=== PATIENT | male | born 1950 | race Caucasian/White ===

== ENCOUNTER → 2018-02-05 02:49 | Outpatient (CLI) | payer MEDICARE, BC, SELFPAY ==
[2018-02-05 09:57] LABS: CREATININE 1.29 mg/dL (0.70-1.30); Cholesterol 165 mg/dL (50-200); Estimated GFR 55.39 (mL/min/1.73m2); HDL Cholesterol 49 mg/dL (40-60); LDL CHOLESTEROL 102 mg/dL (<100); Potassium 4.1 mmol/L (3.5-5.1); Triglyceride 97 mg/dL (30-150)
== END ==
PROVIDERS: PCP Family Medicine; Visit Provider Family Medicine
DX: I10 Essential (primary) hypertension (principal); E78.5 Hyperlipidemia, unspecified
CPT/HCPCS: 36415; 80061; 83721; 82565; 84132

== ENCOUNTER 2019-02-09 10:20 | Outpatient (CLI) | payer MEDICARE, BC, SELFPAY ==
[2019-02-09 13:27] LABS: CREATININE 1.13 mg/dL (0.70-1.30); Calculated LDL 119 mg/dL; Cholesterol 195 mg/dL (50-200); HDL Cholesterol 51 mg/dL (40-60); Potassium 4.2 mmol/L (3.5-5.1); Triglyceride 126 mg/dL (30-150); Vitamin B12 673 pg/mL (193-986)
[2019-02-10 09:58] LABS: PSA, Screening 0.7 ng/ml (0-4.5)
== END 2019-02-09 10:40 ==
PROVIDERS: PCP Family Medicine; Visit Provider Family Medicine
DX: I10 Essential (primary) hypertension (principal); E78.5 Hyperlipidemia, unspecified; R20.0 Anesthesia of skin; R20.2 Paresthesia of skin; Z12.5 Encounter for screening for malignant neoplasm of prostate
CPT/HCPCS: 36415; 80061; 83721; 84153; 82565; 82607; 84132

== ENCOUNTER 2019-02-12 09:42 | Outpatient (REF) | payer MEDICARE, BC, SELFPAY ==
--- NOTE | 2019-02-11 09:00 | SKI_PTH ---
PATIENT: Cole Tanner LOC: [facility] U#:[id number] AGE/SX: 68/M ROOM: RE02/12/[address]: Reji Seo MD : 1950 BED: DIS: 02/12/2019 SPEC #: [id number] RECD: 02/12/19 12:57 STATUS: CORBY REQ #: [id number] [place]: 02/11/19 09:[address]: Reji Seo DEPT: Surgical Specimen RECD BY: Cyndi Isaac Tissues: 1 - SKIN BIOPSY(SHAVE/PUNCH) Procedures: SKIN LEVEL 4 Comments: [id number]
== END 2019-02-12 10:02 ==
LOC: LBN 09:42
PROVIDERS: PCP Family Medicine; Visit Provider Family Medicine
DX: C44.619 Basal cell carcinoma of skin of left upper limb, including shoulder (principal)
CPT/HCPCS: 88305

== ENCOUNTER 2019-04-20 17:21 | Outpatient (REF) | payer MEDICARE, BC, SELFPAY ==
--- NOTE | 2019-04-20 15:25 | SKI_PTH ---
PATIENT: Cole Tanner LOC: [facility] U#:[id number] AGE/SX: 68/M ROOM: RE04/20/[address]: Reji Seo MD : 1950 BED: DIS: 04/20/2019 SPEC #: [id number] RECD: 04/20/19 18:08 STATUS: CORBY REQ #: [id number] [place]: 04/20/19 15:[address]: Reji Seo DEPT: Surgical Specimen RECD BY: Cyndi Isaac Tissues: 1 - SKIN BIOPSY(SHAVE/PUNCH) Procedures: SKIN LEVEL 4 Comments: [id number]
== END 2019-04-20 17:41 ==
LOC: LBN 17:21
PROVIDERS: PCP Family Medicine; Visit Provider Family Medicine
DX: C44.519 Basal cell carcinoma of skin of other part of trunk (principal)
CPT/HCPCS: 88305

== ENCOUNTER → 2019-05-07 10:50 | Outpatient (BNVA) | payer MEDICARE, BC, SELFPAY | PROVIDERS: PCP Family Medicine; Referring Provider Family Medicine; Visit Provider Surgery | DX: C44.519 Basal cell carcinoma of skin of other part of trunk (principal) | CPT/HCPCS: 99212; 99213 ==

== ENCOUNTER → 2019-05-11 13:24 | Outpatient (BNVA) | payer MEDICARE, BC, SELFPAY | PROVIDERS: PCP Family Medicine; Referring Provider Family Medicine; Visit Provider Physical Therapy Assistant | DX: L90.5 Scar conditions and fibrosis of skin (principal); R23.8 Other skin changes; Z85.828 Personal history of other malignant neoplasm of skin | CPT/HCPCS: 11401; 99213 ==

== ENCOUNTER 2019-05-11 17:49 | Outpatient (REF) | payer MEDICARE, BC, SELFPAY ==
--- NOTE | 2019-05-11 13:30 | SKI_PTH ---
PATIENT: Cole Tanner LOC: [facility] U#:[id number] AGE/SX: 68/M ROOM: RE05/11/[address]: ZANA Mchugh : 1950 BED: DIS: 05/11/2019 SPEC #: [id number] RECD: 05/11/19 17:53 STATUS: CORBY REQ #: [id number] [place]: 05/11/19 13:[address]: Sandi Israel DEPT: Surgical Specimen RECD BY: Cyndi Isaac ENTERED: 05/11/19 17:54 SP TYPE: JACKIE GAUTHIER DR: Reji Seo MD Tissues: 1 - SKIN BIOPSY(SHAVE/PUNCH) 2 - SKIN BIOPSY(SHAVE/PUNCH) Procedures: SKIN LEVEL 4 Comments: [id number]
== END 2019-05-11 18:09 ==
LOC: LBN 17:49
PROVIDERS: PCP Family Medicine; Visit Provider Physical Therapy Assistant
DX: L90.5 Scar conditions and fibrosis of skin (principal); R23.8 Other skin changes; Z85.828 Personal history of other malignant neoplasm of skin
CPT/HCPCS: 88305

== ENCOUNTER → 2019-05-19 09:10 | Outpatient (BNVA) | payer MEDICARE, BC, SELFPAY | PROVIDERS: PCP Family Medicine; Referring Provider Family Medicine; Visit Provider Surgery | DX: Z48.817 Encounter for surgical aftercare following surgery on the skin and subcutaneous tissue (principal); L72.3 Sebaceous cyst; I10 Essential (primary) hypertension ==

== ENCOUNTER → 2019-05-31 09:25 | Outpatient (BNVA) | payer MEDICARE, BC, SELFPAY | PROVIDERS: PCP Family Medicine; Referring Provider Family Medicine; Visit Provider Student in an Organized Health Care Education/Training Program | DX: M65.4 Radial styloid tenosynovitis [de Quervain] (principal); M65.341 Trigger finger, right ring finger; I10 Essential (primary) hypertension | CPT/HCPCS: 99203; 99214 ==

== ENCOUNTER 2019-08-03 06:06 | Day surgery (SDC) | payer MEDICARE, BC, SELFPAY ==
--- NOTE | 2019-08-02 18:48 | W.PREOPHP ---
Assessment and Plan Assessment and plan (1) De Quervain's tenosynovitis, right: Status: Acute (2) Trigger finger, right ring finger: Status: Acute Assessment and plan: Plan: Educated patient on surgery covering surgical technique, recovery process, benefits and risks including but not limited to risk of infection, blood clot, damage to soft tissue/blood vessels/nerves in detail. After discussion patient gives verbal understanding of risks and elects to proceed with scheduling surgery. Patient had opportunity to have questions answered to their satisfaction. They will contact office if issues arise. Patient will continue to be scheduled for right de Quervain's as well as right ring trigger finger release with Dr. Billings. History of Present Illness Narrative: Mr. Tanner is a 68-year-old male who is been seen in orthopedic clinic regarding right thumb and wrist discomfort. Patient has been having ongoing symptoms since summer 2018. Notices his thumb and wrist discomfort most significantly with golfing as well as with repetitive motions. Additionally patient has been experiencing triggering of his right ring finger. Patient was seen orthopedic clinic on 05/31/2019 at which time he was diagnosed with de Quervain's tenosynovitis of the right wrist as well as trigger finger of his right ring finger. Due to patient's continued symptoms he was offered surgical intervention and elected to proceed. Review of Systems Cardiovascular Cardiovascular: Denies chest pain and Denies dyspnea Respiratory Respiratory: Denies dyspnea [facility] Medical History Carpal tunnel syndrome HTN (hypertension) Hyperlipidemia Sebaceous cyst (Acute) Skin cancer, basal cell Surgical History (Updated 08/03/19 @ 06:57 by Dinorah Lin RN) Colonoscopy - IV Sedation (05/06/16) 2006 Excision, Lesion skin lesion of right upper chest Hx of eye surgery (Acute) bilateral surgery for glaucoma Trigger Finger release (~03/1999) Social History (Updated 02/11/19 @ 12:53 by Alli Dumont) Smoking/Tobacco Use Status: Never Alcohol Intake: current Alcohol Intake frequency: a few times a week Alcohol type: wine Drug use: Never Substance use type: does not use Caregiver/Support person: No Household members: spouse Communication Needs: None Pets and animals: No Sexually active: Yes Do you think of yourself as: straight/heterosexual Current gender identity: male What is your relationship status?: How often do you talk on the phone with friends or family?: three or more times per week How often do you get together with friends or relatives?: three or more times per week How often do you attend episcopalian or nondenominational services?: 1-3 times per year Do you belong to any clubs or organized social groups?: yes Panel score (0-1 are the most socially isolated patients): 3 What type of physical activity do you participate in: walking and other Details: golf Duration: 45-60 minutes/day Frequency: 3-4 times per week Sharon/Restorationism: Scientologist Special sharon needs: No Seatbelt use: always Drive intox or ride w/intox recycle driver: No Do you feel safe at home: Yes Do you feel safe in your relationship?: Yes Meds Home Medications and Allergies Home Medications Medication Instructions Recorded Confirmed Type aspirin [Aspir-81] 81 mg PO DAILY tab-cap 12/14/12 08/03/19 History multivitamin 1 ea PO DAILY tab 12/14/12 08/03/19 History allopurinol 300 mg tablet 300 mg PO DAILY #90 tab-cap 02/09/19 08/03/19 Rx losartan 25 mg tablet 25 mg PO DAILY #90 tab-cap 02/09/19 08/03/19 Rx metoprolol succinate 100 mg 100 mg PO DAILY #90 tab-cap 02/09/19 08/03/19 Rx tablet,extended release 24 hr simvastatin 5 mg tablet 5 mg PO HS #90 tab-cap 02/09/19 08/03/19 Rx Allergies Allergy/AdvReac Type Severity Reaction Status Date / Time lisinopril AdvReac Mild COUGH Unverified 08/03/19 06:20 Exam Const General: cooperative and no acute distress Resp Effort & Inspection: normal respiratory effort and able to speak in complete sentences Auscultation: clear to auscultation bilaterally, no rales, no rhonchi and no wheezes Cardio Heart Sounds: S1 normal, S2 normal and no murmurs
[2019-08-03 06:35] VITALS: BP 148/89; PULSE 69; RESP 16; TEMP 36.3; O2SAT 94
[2019-08-03] MEDS: Lactated Ringers 1,000 ML 80 ML IV (06:51)
--- NOTE | 2019-08-03 07:15 | W.PM.DSUDISC ---
Documented by User: Giselle Khalil 08/03/19 07:19 Discharge Plan Disposition Patient Disposition: HOME Condition: Good Discharge Details Reason For Visit: right ring finger trigger and right De Quervain's Attending Provider: Sixto Billings Primary Care Provider: Reji Seo Home Meds and New Rx's Prescriptions: New hydrocodone-acetaminophen 5-325 mg tablet 1 tab PO Q6H PRN (Reason: severe pain) Qty: 4 RF: 0 acetaminophen 500 mg tablet 500 mg PO Q6H PRN (Reason: pain) Qty: 60 RF: 2 ibuprofen 600 mg tablet 600 mg PO TID PRN (Reason: pain) Qty: 60 RF: 0 Continued allopurinol [Zyloprim] 300 mg tablet 300 mg PO DAILY Qty: 90 RF: 4 losartan [Cozaar] 25 mg tablet 25 mg PO DAILY Qty: 90 RF: 4 metoprolol succinate 100 mg tablet extended release 24 hr 100 mg PO DAILY Qty: 90 RF: 3 simvastatin 5 mg tablet 5 mg PO HS Qty: 90 RF: 4 multivitamin 1 EACH tablet 1 ea PO DAILY RF: 0 aspirin [Aspir-81] 81 MG tablet,delayed release (DR/EC) 81 mg PO DAILY RF: 0 Discharge Instructions Additional Instructions: Discharge Instructions Activity: You should keep the hand elevated as much as possible for the first few days. You may use the other fingers as tolerated but avoid trying to do too much too soon. You may perform light activities with the dressing in place. Dressing/Cast: Your soft dressing splint should stay in place at all times. Do NOT get it wet. You may loosen the CORBIN wrap if you feel it is too tight and then rewrap more loosely. If it becomes soiled, you may change after 3 days and keep the wounds covered with light gauze or a bandaid. Medications: - You should take Tylenol and Ibuprofen for baseline pain control. - You have Hydrocodone for breakthrough pain. - You may apply ice over the thumb. Follow-up: 7 days Activity:: Elevate Remove Dressings/Wound Care:: Do Not Remove Shower/Bathe:: Cover Diet:: As Tolerated Discharge Orders Discharge Orders: Discharge Order (Routine); Ordered 08/03/19 Ordered By: Giselle Khalil DS: Diagnosis Discharge Diagnosis (1) De Quervain's tenosynovitis, right: Status: Acute (2) Trigger finger, right ring finger: Status: Acute Documented by User: Sixto Billings MD 08/03/19 08:10 Discharge Plan Disposition Patient Disposition: HOME Condition: Good Discharge Details Reason For Visit: right ring finger trigger and right De Quervain's Attending Provider: Sixto Billings Primary Care Provider: Reji Seo Home Meds and New Rx's Prescriptions: New hydrocodone-acetaminophen 5-325 mg tablet 1 tab PO Q6H PRN (Reason: severe pain) Qty: 4 RF: 0 acetaminophen 500 mg tablet 500 mg PO Q6H PRN (Reason: pain) Qty: 60 RF: 2 ibuprofen 600 mg tablet 600 mg PO TID PRN (Reason: pain) Qty: 60 RF: 0 Continued allopurinol [Zyloprim] 300 mg tablet 300 mg PO DAILY Qty: 90 RF: 4 losartan [Cozaar] 25 mg tablet 25 mg PO DAILY Qty: 90 RF: 4 metoprolol succinate 100 mg tablet extended release 24 hr 100 mg PO DAILY Qty: 90 RF: 3 simvastatin 5 mg tablet 5 mg PO HS Qty: 90 RF: 4 multivitamin 1 EACH tablet 1 ea PO DAILY RF: 0 aspirin [Aspir-81] 81 MG tablet,delayed release (DR/EC) 81 mg PO DAILY RF: 0 Discharge Instructions Additional Instructions: Discharge Instructions Activity: You should keep the hand elevated as much as possible for the first few days. You may use the other fingers as tolerated but avoid trying to do too much too soon. You may perform light activities with the dressing in place. Dressing/Cast: Your soft dressing splint should stay in place at all times. Do NOT get it wet. You may loosen the CORBIN wrap if you feel it is too tight and then rewrap more loosely. If it becomes soiled, you may change after 3 days and keep the wounds covered with light gauze or a bandaid. Medications: - You should take Tylenol and Ibuprofen for baseline pain control. - You have Hydrocodone for breakthrough pain. - You may apply ice over the thumb. Follow-up: 7 days Activity:: Elevate Remove Dressings/Wound Care:: Do Not Remove Shower/Bathe:: Cover Diet:: As Tolerated Discharge Orders Discharge Orders: Discharge Order (Routine); Ordered 08/03/19 Ordered By: Giselle Khalil
[2019-08-03] MEDS: Sodium Bicarbonate 50 MEQ/50 ML VIAL (07:36)
[2019-08-03 08:45] VITALS: BP 133/78; PULSE 61; RESP 16; TEMP 36.2; O2SAT 94
--- NOTE | 2019-08-03 09:56 | W.PM.OP ---
Date of service: 08/03/19 Time of Service: 08:34 Operative Note Operative Note DATE OF PROCEDURE: 08/03/19 PRE-OP DIAGNOSIS: Right Dequervain's Tenosynovitis and Right Ring Finger Trigger Finger POST-OP DIAGNOSIS: same PROCEDURE: Right First Extensor Compartment Release and Right Ring Finger Trigger Release SURGEON: Sixto Billings ANESTHESIA: MAC ESTIMATED BLOOD LOSS: 5 PATHOLOGY: none sent TOURNIQUET TIME: 0 COMPLICATIONS: None Patient was transported to: same day Patient's condition: stable Indications: Cole is a 68 year old male who has had symptoms of Dequervain's tenosynovitis. He also had a persistent right ring finger trigger finger. Nonoperative treatment options had been trialed. Given their failure, I offered operative intervention. I reviewed the technical details of a first extensor compartment release. I reviewed the risk of the procedure to include bleeding, infection, pain, stiffness, tendon instability, damage to the superficial radial nerve, and complete release. Despite these risks, the patient elected to proceed. Findings: There was a tightened A1 nayeli of the ring finger which was released. The tendons were withdrawn and insecpted and finger motion was tested. There was a tightened first extensor compartment with notable fluid and a small cyst at the edge of the compartment. Procedure Description: Cole was greeted in the preoperative holding area. Name and surgical site were confirmed. The history and physical was completed. The consent was reviewed the patient and signed. Cole was taken back to the operating room. The patient was placed and monitored anesthesia care. The right was then prepped with ChloraPrep and draped in a standard fashion after a nonsterile tourniquet was placed high up onto the arm. Prophylactic antibiotics in the form of cefazolin were administered. A timeout was performed for safe surgery. The surgical sites were drawn on the skin. The planned surgical field was anesthetized with 1% Lidocaine with epinephrine buffered 9:1 with sodium bicarbonate. Starting with the ring finger trigger finger, a 1 cm incision was made longitudinally overlying the A1 nayeli. This was incised sharply the skin. Patient had good anesthetic. Deep tissue was dissected bluntly and retracted away to expose the A1 nayeli. With A1 nayeli identified the proximal edge was incised with a pair of tenotomy scissors. This was released through its entirety with 2 flaps of the A1 nayeli freely . There was some synovitis seen around the tendons which was excised sharply. The tendons were withdrawn from the hand without difficulty and inspected. There was no tearing. Cole was unable to move his finger without clicking, triggering, or locking. The wound was irrigated. The skin was closed with a 4-0 nylon. We then turned our attention to the de Quervain's release. A 2 cm incision was made longitudinally over the radial styloid. The skin was incised only. The deep tissue and subcutaneous fat was dissected with a tenotomy scissors trying to protect branches of the superficial radial nerve. Any branches that were identified were retracted out of the way. The first compartment extensor tendons were then identified. The distal aspect of the first compartment was noted and were released. There is immediately a funes of synovial fluid from within the compartment. This release was performed more on the dorsal side to prevent tendon subluxation. The entirety of the first extensor compartment was then released. The slips of the abductor pollicis longus tendon were inspected. They removed to confirm the appropriate motion of the thumb. The extensor pollicis brevis tendon was then identified. No true sub-compartment was identified. There was excessive synovium around the EPB tendon as well as 2 slips of the APL. This was resected sharply. Traction on the tendon was also used to confirm appropriate extension of the thumb confirming the release of the appropriate tendon. Cole was also able to move his thumb to confirm we had appropriately released the tendons. The dorsal radial surface of the radius was once again inspected to make sure there is no other sub-compartments or other restrictions to tendon motion. The wound was then thoroughly irrigated. The deep tissue was closed with a 3-0 Vicryl. The skin was closed with a running subjective 4-0 Monocryl. The hand was dressed with 4 x 4's, Kerlix, and an Marco A wrap. All counts are correct. Patient was transferred back to same day surgery area in stable condition.
== END 2019-08-03 09:02 | disposition home or self-care (01) ==
PROVIDERS: PCP Family Medicine; Visit Provider Student in an Organized Health Care Education/Training Program
PROC: (CPT 25000; principal; 2019-08-03 07:30)
PROC: (CPT 26055; 2019-08-03 07:30)
DX: M65.4 Radial styloid tenosynovitis [de Quervain] (principal); M65.341 Trigger finger, right ring finger; I10 Essential (primary) hypertension
CPT/HCPCS: 25000; 26055; NC; J0690; J1885; J2001; J2704

== ENCOUNTER → 2019-08-12 07:57 | Outpatient (BNVA) | payer MEDICARE, BC, SELFPAY | PROVIDERS: PCP Family Medicine; Referring Provider Family Medicine; Visit Provider Student in an Organized Health Care Education/Training Program | DX: Z47.89 Encounter for other orthopedic aftercare (principal); M65.4 Radial styloid tenosynovitis [de Quervain]; M65.341 Trigger finger, right ring finger ==

== ENCOUNTER 2020-03-14 01:47 | Outpatient (CLI) | payer MEDICARE, BC, SELFPAY ==
[2020-03-14 09:20] LABS: CREATININE 1.32 mg/dL (0.70-1.30); Calculated LDL 93 mg/dL (<100); Cholesterol 170 mg/dL (<200); Estimated GFR 53.62 (mL/min/1.73m2); HDL Cholesterol 58 mg/dL (40-60); Potassium 4.3 mmol/L (3.5-5.1); Triglyceride 98 mg/dL (<150)
== END 2020-03-14 02:07 ==
PROVIDERS: PCP Family Medicine; Visit Provider Family Medicine
DX: I10 Essential (primary) hypertension (principal); E78.5 Hyperlipidemia, unspecified
CPT/HCPCS: 36415; 80061; 82565; 84132

== ENCOUNTER 2020-04-12 09:57 | Outpatient (REF) | payer MEDICARE, BC, SELFPAY ==
--- NOTE | 2020-04-12 08:45 | SKI_PTH ---
PATIENT: Cole Tanner LOC: [facility] U#:[id number] AGE/SX: 69/M ROOM: RE04/12/[address]: Reji Seo MD : 1950 BED: DIS: 04/12/2020 SPEC #: [id number] RECD: 04/12/20 12:50 STATUS: CORBY REQ #: [id number] [place]: 04/12/20 08:[address]: Reji Seo DEPT: Surgical Specimen RECD BY: Cyndi Isaac Tissues: 1 - SKIN BIOPSY(SHAVE/PUNCH) Procedures: SKIN LEVEL 4 Comments: [id number]
== END 2020-04-12 10:17 ==
LOC: LBN 09:57
PROVIDERS: PCP Family Medicine; Visit Provider Family Medicine
DX: L28.1 Prurigo nodularis (principal)
CPT/HCPCS: 88305

== ENCOUNTER 2020-05-10 00:21 | Outpatient (CLI) | payer MEDICARE, BC, SELFPAY ==
[2020-05-12 18:47] LABS: Patient Race White; SARS-CoV-2 RNA Undetected (Undetected); SARS-CoV-2 Specimen Source Nasal
== END 2020-05-10 00:41 ==
PROVIDERS: PCP Family Medicine; Visit Provider Family Medicine
DX: Z11.59 Encounter for screening for other viral diseases (principal); Z20.828 Contact with and (suspected) exposure to other viral communicable diseases
CPT/HCPCS: U0003

== ENCOUNTER 2021-04-27 12:06 | Outpatient (CLI) | payer MEDICARE, BC, SELFPAY ==
[2021-04-27 16:42] LABS: CREATININE 1.1 mg/dL (0.70-1.30); Potassium 4.2 mmol/L (3.5-5.1); Uric Acid 4.3 mg/dL (3.5-7.2)
== END 2021-04-27 12:07 | disposition home or self-care (01) ==
PROVIDERS: PCP Family Medicine; Visit Provider Family Medicine
DX: I10 Essential (primary) hypertension (principal); M10.9 Gout, unspecified
CPT/HCPCS: 36415; 82565; 84132; 84550

== ENCOUNTER 2022-07-04 04:14 | Outpatient (CLI) | payer MEDICARE, BC, SELFPAY ==
[2022-07-04 13:53] LABS: Anion Gap 8.8 mmol/L (3-11); BUN 17 mg/dL (7-18); CO2 29.2 mmol/L (21.0-32.0); CREATININE 1.4 mg/dL (0.70-1.30); Calcium 9.1 mg/dL (8.5-10.1); Calculated LDL 88 mg/dL (<100); Chloride 103 mmol/L (98-107); Cholesterol 172 mg/dL (<200); Glucose 93 mg/dL (74-106); HDL Cholesterol 52 mg/dL (40-60); Sodium 141 mmol/L (136-145); Triglyceride 162 mg/dL (<150)
[2022-07-04 14:23] LABS: Uric Acid 4.1 mg/dL (3.5-7.2)
== END 2022-07-04 04:15 | disposition home or self-care (01) ==
PROVIDERS: PCP Family Medicine; Visit Provider Family Medicine
DX: E78.5 Hyperlipidemia, unspecified (principal); E87.1 Hypo-osmolality and hyponatremia; I10 Essential (primary) hypertension; M10.9 Gout, unspecified
CPT/HCPCS: 36415; 80048; 80061; 84550

== ENCOUNTER → 2023-05-27 08:49 | Outpatient (BNVA) | payer MEDICARE, BC, SELFPAY | PROVIDERS: PCP Family Medicine; Referring Provider Family Medicine; Visit Provider Psychiatry & Neurology Neurology | DX: G56.02 Carpal tunnel syndrome, left upper limb (principal); G56.22 Lesion of ulnar nerve, left upper limb; G62.9 Polyneuropathy, unspecified | CPT/HCPCS: 95908; 99204 ==

== ENCOUNTER 2023-06-02 04:56 | Outpatient (CLI) | payer MEDICARE, BC, SELFPAY ==
[2023-06-02 16:31] LABS: Hemoglobin A1C 5.6 % (<5.7)
[2023-06-02 18:04] LABS: TSH (W/Ref FT4) 2.22 uIU/mL (0.36-3.74); Vitamin B12 687 pg/mL (193-986)
[2023-06-04 13:34] LABS: Albumin 61.5 % (55.8-66.1); Albumin g/dL 4.7 g/dL (3.6-5.2); Total Protein 7.7 g/dL (6.3-8.2)
== END 2023-06-02 04:57 | disposition home or self-care (01) ==
LOC: LBO 04:57
PROVIDERS: Psychiatry & Neurology Neurology; PCP Family Medicine; Visit Provider Family Medicine
DX: G62.9 Polyneuropathy, unspecified (principal); R20.0 Anesthesia of skin; R73.9 Hyperglycemia, unspecified
CPT/HCPCS: 36415; 82607; 83036; 84165; 84443

== ENCOUNTER → 2023-06-26 08:22 | Outpatient (BNVA) | payer MEDICARE, BC, SELFPAY | PROVIDERS: PCP Family Medicine; Referring Provider Family Medicine; Visit Provider Student in an Organized Health Care Education/Training Program | DX: G56.02 Carpal tunnel syndrome, left upper limb (principal) | CPT/HCPCS: 99213 ==

== ENCOUNTER 2023-07-02 08:48 | Outpatient (CLI) | payer MEDICARE, BC, SELFPAY ==
[2023-07-02 12:54] LABS: CREATININE 1.3 mg/dL (0.70-1.30); Calculated LDL 93 mg/dL (<100); Cholesterol 171 mg/dL (<200); Estimated GFR 58.01 (mL/min/1.73m2); HDL Cholesterol 59 mg/dL (40-60); Potassium 4.2 mmol/L (3.5-5.1); Triglyceride 99 mg/dL (<150)
[2023-07-02 13:06] LABS: Uric Acid 4.8 mg/dL (3.5-7.2)
== END 2023-07-02 08:49 | disposition home or self-care (01) ==
LOC: LOS 08:48
PROVIDERS: PCP Family Medicine; Referring Provider Family Medicine; Visit Provider Family Medicine
DX: E78.5 Hyperlipidemia, unspecified (principal); M10.9 Gout, unspecified; I10 Essential (primary) hypertension
CPT/HCPCS: 36415; 80061; 82565; 84132; 84550

== ENCOUNTER 2023-07-09 10:16 | Day surgery (SDC) | payer MEDICARE, BC, SELFPAY ==
--- NOTE | 2023-07-09 07:37 | PDOC.DSDIS_ITS ---
Date of service: 07/09/23 Time of Service: 07:37 Discharge Plan Disposition Patient Disposition: Home Condition: Good Discharge Details Reason For Visit: L ECTR Attending Provider: Sixto Billings Primary Care Provider: Reji Seo Home Meds and New Rx's Prescriptions: New hydrocodone-acetaminophen 5-325 mg tablet 1 tab PO Q6H PRN (Reason: pain) Qty: 6 0RF acetaminophen 500 mg tablet 1,000 mg PO TID Qty: 90 0RF ibuprofen 600 mg tablet 600 mg PO TID PRN (Reason: pain) Qty: 90 0RF Continued allopurinol 300 mg tablet 300 mg PO DAILY Qty: 90 4RF Rx Instructions: 1 TAB DAILY losartan 50 mg tablet 50 mg PO DAILY Qty: 90 3RF metoprolol succinate 100 mg tablet extended release 24 hr 100 mg PO DAILY Qty: 90 3RF simvastatin 5 mg tablet 5 mg PO HS Qty: 90 4RF Rx Instructions: 1 TAB HS fexofenadine [Rahel Allergy] 60 mg tablet 60 mg PO DAILY PRN multivitamin 1 EACH tablet 1 ea PO DAILY Discontinued acetaminophen 500 mg tablet 500 mg PO Q6H PRN (Reason: pain) Qty: 60 2RF ibuprofen 600 mg tablet 600 mg PO TID PRN (Reason: pain) Qty: 60 0RF Discharge Instructions Stand Alone Forms: Anesthesia Discharge Inst., Awa Ordoñez Tunnel Release, Michael Maloney ([facility]) Referrals: Sixto Billings MD [ [facility] STAFF PHYSICIAN] - 07/17/23 8:00 am Activity:: Activity as Tolerated Remove Dressings/Wound Care:: 48 hours Shower/Bathe:: 48 hours Diet:: As Tolerated Discharge Orders Discharge Orders: Discharge Order (Routine); Ordered 07/09/23 Ordered By: Danny Eaton DS: Diagnosis Discharge Diagnosis (1) Carpal tunnel syndrome on left: Status: Acute
[2023-07-09 10:37] VITALS: BP 143/82; PULSE 52; RESP 16; TEMP 35.8; O2SAT 97
[2023-07-09] MEDS: Lactated Ringers 1,000 ML 80 ML IV (11:14)
--- NOTE | 2023-07-09 11:46 | W.ANESPRE ---
General Info Date of Service Date Performed: 07/09/23 Height: 5 ft 11 in Weight: 103.9 kg Body Mass Index (BMI): 31.9 Surgical Procedure: Operation Date: 07/09/23 12:55 Proposed Procedure Side Surgeon p Wrist ECTR Left Sixto Billings MD Meds Allergies and Home Medications Allergies Allergy/AdvReac Type Severity Reaction Status Date / Time lisinopril AdvReac Mild COUGH Verified 07/09/23 10:47 Home Medication Medication Instructions Recorded multivitamin 1 ea PO DAILY 12/14/12 fexofenadine 60 mg tablet (Rahel 60 mg PO DAILY PRN 03/10/20 Allergy) allopurinol 300 mg tablet 300 mg PO DAILY #90 tab-caps 07/02/23 losartan 50 mg tablet 50 mg PO DAILY #90 tabs 07/02/23 metoprolol succinate 100 mg 100 mg PO DAILY #90 tab-caps 07/02/23 tablet,extended release 24 hr simvastatin 5 mg tablet 5 mg PO HS #90 tab-caps 07/02/23 acetaminophen 500 mg tablet 1,000 mg (2 x 500 mg) PO TID #90 07/09/23 tabs hydrocodone 5 mg-acetaminophen 325 1 tab PO Q6H PRN pain #6 tabs 07/09/23 mg tablet ibuprofen 600 mg tablet 600 mg PO TID PRN pain #90 tabs 07/09/23 Current Visit Medications: Current Medications Generic Name Dose Route Start Last Admin Trade Name Freq PRN Reason Stop Dose Admin Acetaminophen 650 mg 07/09/23 07:36 Acetaminophen 325 Mg Tab PO 08/08/23 07:35 Q4H PRN PRN Hydrocodone Bitart/Acetaminophen 0 tab 07/09/23 07:36 Hydrocodone 5/Acetaminophen 325 Tab PO 08/08/23 07:35 Q3H PRN PRN Pain Ringer's Solution 1,000 mls @ 80 mls/hr 07/09/23 06:00 07/09/23 11:14 IV 08/07/23 23:59 80 mls/hr INFUSION [place]ON Administration Cefazolin Sodium/Dextrose 2 gm in 50 mls @ 100 mls/hr 07/09/23 06:00 Ancef Duplex IVPB 08/08/23 05:59 PREOP [place] IV Miscellaneous Supplies 1 each 07/09/23 06:00 Iv Access IV 08/07/23 23:59 DIRECTED [place] Sodium Chloride 0 ml 07/09/23 06:00 Normal Saline Flush 10 Ml Syr IV 08/07/23 23:59 PRN PRN Sodium Chloride 0 ml 07/09/23 06:00 Normal Saline 10 Ml Vial IJ 08/07/23 23:59 DIRECTED PRN Sterile Water 0 ml 07/09/23 06:00 Water,Injection,Sterile 10 Ml Vial IJ 08/07/23 23:59 DIRECTED PRN PFSH Active Problems Active Problems: Problem Status Onset Code Ulnar neuropathy at elbow of left upper extremity G56.22 Peripheral neuropathy G62.9 Carpal tunnel syndrome on left G56.02 Dysphagia R13.10 Dysplastic skin lesion L98.8 Atypical pneumonia J18.9 Status post trigger finger release Z98.890 Kidney stone 03/31/12 N20.0 Hypertension I10 Hyperlipidemia 12/22/12 E78.5 History of methicillin resistant Staphylococcus aureus infection 05/12/14 Z86.14 Gout 12/22/12 M10.9 Fracture of tibia S82.209A Anterior subluxation or dislocation of shoulder Carpal tunnel syndrome 12/22/12 G56.00 Basal cell carcinoma of chest wall 02/21/16 C44.519 Actinic keratosis of scalp 01/10/15 L57.0 Skin lesion L98.9 BCC (basal cell carcinoma of skin) C44.91 Trigger finger, right ring finger M65.341 De Quervain's tenosynovitis, right M65.4 Visit for suture removal Z48.02 Sebaceous cyst L72.3 Medical History Medical History HTN (hypertension) Hyperlipidemia Skin cancer, basal cell Carpal tunnel syndrome Surgical History Surgical History Hx of eye surgery bilateral surgery for glaucoma Trigger Finger release (~03/1999) Excision, Lesion skin lesion of right upper chest Colonoscopy - IV Sedation (05/06/16) 2005 Tobacco Smoking/Tobacco Use Status: Never Passive smoking exposure: No Second hand exposure: No Alcohol Alcohol Intake: current Alcohol intake frequency: a few times a week Alcohol type: wine and hard liquor Substance Use Substance use: Never Substance use type: does not use Vital Signs and Lab Results Vital Signs Most Recent Vital Signs in EMR: Most Recent Vital Signs Temp Pulse Resp BP Pulse Ox 35.8 C L 52 L 16 143/82 H 97 07/09/23 10:37 07/09/23 10:37 07/09/23 10:37 07/09/23 10:37 07/09/23 10:37 Lab Results Blood Type / Crossmatch: No Data to Display Complete Blood Count: No Data to Display Complete Metabolic Panel: Potassium 4.2 mmol/L (3.5-5.1) 07/02/23 09:25 Creatinine 1.3 mg/dL (0.70-1.30) 07/02/23 09:25 Est GFR (CKD-EPI 2020) 58.01 (mL/min/1.73m2) 07/02/23 09:25 Liver Function Panel: No Data to Display Coagulation Panel: No Data to Display Cardiac Panel: No Data to Display Arterial Blood Gas: No Data to Display Venous Blood Gas: No Data to Display Pancreas Panel: No Data to Display Thyroid Panel: No Data to Display Infectious Disease: No Data to Display Blood Cultures: No Data to Display Toxicology Panel: No Data to Display Anesthesia Assessment and Plan Anesthesia History Personal History: No History of Anesthesia Complications Family History: No Family History of Anesthesia Complications Exercise Tolerance Exercise Tolerance: Metabolic Equivalents>4 Cardiac & Pulmonary Exam Cardiac Exam: Normal S1/S2 Heart Sounds Pulmonary Exam: Clear Bilateral Breath Sounds Implantable Cardiac Device Does patient have a Pacemaker or an ICD?: No Airway Exam Known Difficult Airway: No Mallampati Class: 3 Mouth Opening: Narrow (< 3cm) Thyromental Distance: Greater than 3 cm Neck Range of Motion: Full ROM and Limited ROM Neck Circumference: Normal Teeth Condition: Normal Dentition ASA Classification ASA Score: ASA 2 Emergency Case?: No NPO Status NPO Status: NPO Clears >2 hours, Solids >8 hours Anesthesia Plan Resuscitation Status: Full Code Anesthesia Technique: General Anesthesia Airway Planned: Natural Airway Monitors Used: Standard Monitors Preoperative Comments:: 72 yo male for ECTR. Sig PMHx: HTN, never smoker, occ EtOH.
[2023-07-09 11:53] VITALS: BMI 31.9
[2023-07-09] MEDS: ceFAZolin 2 GM/50 ML BAG IVPB (12:40)
[2023-07-09] MEDS: Lidocaine 1% Multi-Dose W/EPI 1/100,000 50 ML VIAL (12:59)
[2023-07-09 13:05] VITALS: BP 92/65; PULSE 57; RESP 16; TEMP 36; O2SAT 93
--- NOTE | 2023-07-09 13:13 | W.ANESPOSTOP ---
Postoperative Evaluation Date, Time and Location Date Performed: 07/09/23 Time Performed: 13:14 Patient Location: Day Surgery Unit Vital Signs Most Recent Imported Vital Signs: Most Recent Vital Signs Temp Pulse Resp BP Pulse Ox 36 C L 57 L 16 92/65 L 93 07/09/23 13:05 07/09/23 13:05 07/09/23 13:05 07/09/23 13:05 07/09/23 13:05 Pain Score Most Recent Pain Score: Most Recent Pain Score Pain Level 0 07/09/23 13:05 Assessment Mental Status: Awake (Alert & Oriented to Patient Baseline) Airway and Respiratory Function: Patent airway with normal (patient baseline) respiratory exam Cardiovascular Function: Hemodynamically Stable Hydration Status: Adequately Hydrated Nausea & Vomiting: No Nausea or Vomiting Pain: Pain is tolerable per patient Peripheral Nerve Block: Patient did not receive a nerve block
--- NOTE | 2023-07-09 13:20 | W.PM.OP ---
Date of service: 07/09/23 Time of Service: 12:50 Operative Note Operative Note DATE OF PROCEDURE: 07/09/23 PRE-OP DIAGNOSIS: Left Carpal Tunnel Syndrome POST-OP DIAGNOSIS: same PROCEDURE: Left Endoscopic Carpal Tunnel Release SURGEON: Sixto Billings ANESTHESIA TYPE: General:No Airway Refer to Anesthesia Record ESTIMATED BLOOD LOSS: 0 PATHOLOGY: none sent TOURNIQUET TIME: 6 COMPLICATIONS: None Patient was transported to: same day Patient's condition: stable Indications: I have seen Cole in clinic for symptoms of carpal tunnel syndrome. The numbness, tingling, and pain limited function. Clinical exam findings confirmed the diagnosis of carpal tunnel syndrome. Nonoperative measures such as bracing, time, activity modifications had been tried but disability and pain persisted. I discussed carpal tunnel release with the patient. I reviewed the risks of the procedure to include, but not limited to, bleeding, infection, pain, stiffness, incomplete release, damage to nerves or vessels, persistent numbness, recurrence. Despite these risks, the patient elected to proceed. Findings: There was tightened carpal tunnel. This was dilated and released successfully with the endoscopic with increased space within the tunnel. The antebrachial fascia was released proximally freeing the median nerve at the wrist. Procedure Description: Cole was greeted in the preoperative holding area where the correct side was identified and marked. The consent was reviewed with the patient and signed. The history and physical was updated. All questions were answered. He was taken back to the operating room. The patient was placed into the supine position on the operating room table with the left arm on an arm board. A nonsterile tourniquet was placed high onto the arm. All bony prominences were well padded. Prophylactic antibiotics in the form of Cefazolin were administered. The left arm was then prepped with Chloraprep and draped in a standard fashion with stockinette and extremity drape. A timeout to confirm correct identity, side and site, procedure, allergies, anesthesia, and medical concerns was performed. The surgical site was marked in the volar wrist creases in line with the radial border of the fourth ray. This area was anesthetized with approximately 6cc of 1% Lidocaine. The limb was then exsanguinated with an Esmarch. The skin was incised with a 15 blade, approximately 1cm. The skin only was cut and the deeper tissue was dissected bluntly with a tenotomy scissor, avoiding passing nerve and venous structures. The fascia was penetrated and opened bluntly. A two-prong skin hook was placed under this proximal fascial edge. A series of hamate finders were used to identify and dilate the carpal tunnel. Synovial elevator was used to free synovial attachments to the underside of the transverse carpal ligament. My thumb was kept in the palm to corona the distal extent of the carpal tunnel and correctly position the hand. The Microaire endoscope was inserted without difficulty and without resistance. Excellent visualization showed horizontally running fibers of the transverse carpal ligament (TCL). The distal extent of the TCL was visualized and the end of the scope palpated with the thumb. The blade was elevated and withdrawn from distal to proximal. The TCL was split into two flaps. The endoscope was reinserted to confirm complete release and any remnant ligament was incised. The scope was withdrawn and the proximal aspect of the carpal tunnel was grossly inspected and appeared release with the median nerve visible. The antebrachial fascia at the level of the wrist was then freed from the overlying skin and then the underlying median nerve with blunt dissection. This was transected longitudinally for about 3cm proximal to the wrist incision. The wound was then irrigated with easy flow of irrigant distally and proximally. The incision was closed with a single 4-0 Nylon suture. The wound was dressed with Xeroform, Gauze, Kerlix and Marco A. The tourniquet was deflated with the initial dressing and held with some pressure. Blood flow returned easily to all digits with capillary refill less than 2 seconds. The patient tolerated the procedure well and was returned to the Same Day Surgery area in a stable condition suffering no known complication.
[2023-07-09 13:37] VITALS: BP 133/79; PULSE 54; RESP 16; TEMP 36.1; O2SAT 95
== END 2023-07-09 13:50 | disposition home or self-care (01) ==
LOC: SUR 10:17
PROVIDERS: PCP Family Medicine; Visit Provider Student in an Organized Health Care Education/Training Program
PROC: 01N54ZZ Release Median Nerve, Percutaneous Endoscopic Approach (ICD-10-PCS; CPT 29848; principal; 2023-07-09 12:45)
DX: G56.02 Carpal tunnel syndrome, left upper limb (principal); I10 Essential (primary) hypertension
CPT/HCPCS: 29848; J0690; J2004; J2405; J2704; J3010

== ENCOUNTER → 2023-07-17 07:50 | Outpatient (BNVA) | payer MEDICARE, BC, SELFPAY | PROVIDERS: PCP Family Medicine; Referring Provider Family Medicine | DX: Z47.89 Encounter for other orthopedic aftercare (principal); G56.02 Carpal tunnel syndrome, left upper limb ==

== ENCOUNTER 2024-07-13 02:31 | Outpatient (CLI) | payer MEDICARE, BC, SELFPAY ==
[2024-07-13 13:20] LABS: Abs Immature Grans 0.01 10^3/uL (0.0-0.06); Absolute Basophil Count 0.09 10^3/uL (0.0-0.2); Absolute Eosinophil Count 0.35 10^3/uL (0.0-0.7); Absolute Lymphocyte Count 2.19 10^3/uL (1.2-3.4); Absolute Monocyte Count 0.81 10^3/uL (0.1-0.8); Absolute Neutrophil Count 5.33 10^3/uL (1.2-6.7); HCT 44.8 % (40.0-50.0); HGB 15.1 g/dL (13.5-17.5); Immature Grans % 0.1 %; Lymphocytes % 24.9 %; MCHC 33.7 % (32.0-36.0); MCV 98 fL (80-95); MPV 9.5 fL (8.0-11.0); Monocytes % 9.2 %; Neutrophils % 60.8 %; Platelet Count 177 10^3/uL (130-400); RBC 4.58 10^6/uL (4.36-5.78); RDW 12.7 % (11.8-14.1); RDW-SD 45.4 fL; WBC 8.78 10^3/uL (4.4-10.8)
[2024-07-13 13:46] LABS: Anion Gap 5.6 mmol/L (3-11); BUN 18 mg/dL (7-18); CO2 30.4 mmol/L (21.0-32.0); CREATININE 1.3 mg/dL (0.70-1.30); Calcium 9.7 mg/dL (8.5-10.1); Chloride 107 mmol/L (98-107); Estimated GFR 57.65 (mL/min/1.73m2); Glucose 92 mg/dL (74-106); Potassium 4.4 mmol/L (3.5-5.1); Sodium 143 mmol/L (136-145); Uric Acid 4.3 mg/dL (3.5-7.2)
[2024-07-14 10:30] LABS: Hepatitis C Ab w Rflx HCV PCR Negative (Negative)
[2024-07-14 10:36] LABS: HIV-1/2 Ag & Ab Screen Negative (Negative)
[2024-07-14 10:47] LABS: HBs Antibody, Quant <3.1 mIU/mL (See Note); Hep B Surface Ab Negative (See Note); Hepatitis B Core Antibody Negative (Negative); Hepatitis B Surface Antigen Negative (Negative)
== END 2024-07-13 02:32 | disposition home or self-care (01) ==
LOC: LBO 02:31
PROVIDERS: PCP Family Medicine; Visit Provider Family Medicine
DX: Z11.59 Encounter for screening for other viral diseases (principal); D64.9 Anemia, unspecified; E87.1 Hypo-osmolality and hyponatremia; M10.9 Gout, unspecified
CPT/HCPCS: 36415; 80048; 86704; 86706; 86803; 87340; 87389; 84550; 85025

== ENCOUNTER 2024-07-26 00:04 | Outpatient (CLI) | payer MEDICARE, BC, SELFPAY ==
--- NOTE | 2024-07-26 07:00 | DI.NM_ITS ---
APPROVED REPORT Exam: Exercise Treadmill Patient Location: Out-Patient Room/Bed: Stress Nurse: Sheri Hdez RN Ordering Provider:HAYLEY HORNE, Contact Number: [phone] BMI: 32.07 Baseline Rhythm: Sinus Rhythm Comment: SR, occasional PVC's, couplets Indications: LIM, chest pain Medical History Medical History: HTN, HLD, skin CA, LIM, peripheral neuropathy Cardiac Medications: Allopurinol, losartan, metoprolol succinate, simvastatin Allergies: Lisinopril Cardiac Risk Factors: Family hx, HTN, HLD Previous Cardiac Procedures: None Pretest Chest Pain Characteristics: None Exercise History: Physically active Physical Disabilities: None Lung Sounds: Clear to auscultation Heart Sounds: Regular Stress Test Details Test: Exercise stress testing was performed using a David protocol. Nuclear Acquisition: Rest Tc-99m/Stress Tc-99m 1 day Rest Isotope: Tc-99m Sestamibi. Dose: 10.0 Date: 07/26/2024 Injection Time: 0845 Stress Isotope: Tc-99m Sestamibi. Dose: 30.0 Date: 07/26/2024 Injection Time: 1007 HR Resting HR Supine: 80 bpm Max Heart Rate (APMHR): 146 bpm Resting HR Standin bpm Target HR (85% APMHR): 124 bpm Max HR Achieved: 140 bpm % of APMHR: 96 Recovery HR: 85 bpm HR response to stress: Normal HR response to stress BP Resting BP Supine: 156/88 mmHg Resting BP Standin/90 mmHg Max BP: 210/66 mmHg Recovery BP: 154/78 mmHg BP response to stress: Normal blood pressure response to stress. ECG Resting ECG: Sinus Rhythm Ectopy: Occasional PVC's, couplets Stress ECG: Sinus Tachycardia ST Change: No significant ST segment changes noted Arrhythmia: None Recovery ECG: Sinus Rhythm Recovery ST Change: No significant ST segment changes noted Recovery Arrhythmia: Occasional PVC's, couplets, PSVT x2 Clinical Reason for Termination: Target HR Achieved, Mild LIM Stress Symptoms: Mild LIM Exercise duration: 02 min58 sec Highest Stage Reached: Stage 1: 1.7 mph at 10% grade. Exercise capacity: 4.64 METs Angina Score: None Vivar Treadmill Score: 2.5 Rate Pressure Product: [id number] Stress ECG Conclusion 1. Resting electrocardiogram showed low voltage 2. Patient exercised on the David protocol and completed a workload of 4.64 METS 3. Normal blood pressure response to exercise. Rapid heart rate response to exercise suggest decondi tioning. The patient achieved 96% of maximal predicted heart rate for age 4. There was no electrocardiographic evidence of myocardial ischemia 5. There were no significant dysrhythmias 6. See MPI report Vivar Treadmill Score is 2.5 which is Moderate risk. Stress Test Summary STAGE Time (mins) Speed (mph) Grade (%) HR BP SpO2 SYMPTOMS METS Supine 80 156/88 94% Standing 79 142/90 1 3 1.7 10 140 142/90 93% 4.5 2 6 2.5 12 140 7 1 min recovery 96 210/64 3 min recovery 90 188/70 98% 6 min recovery 85 154/78 97% MPI Conclusion Myocardial perfusion is normal. There is no ischemia or evidence of prior infarction Calculated EF is 72% with hyperdynamic wall motion
== END 2024-07-26 00:24 ==
LOC: DI 00:05
PROVIDERS: PCP Family Medicine; Visit Provider Internal Medicine Cardiovascular Disease
DX: R07.9 Chest pain, unspecified (principal)
CPT/HCPCS: 78452; 93016; 93018; 93017